=== PATIENT | female | born 1995 | race Asian ===

== ENCOUNTER 2017-11-20 23:36 | Emergency (ER) | payer OTHER ==
[~2017-11-20] VITALS: Ht 152.4 cm; Wt 56.7 kg
[2017-11-20 23:38] VITALS: Ht 152.4 cm; Wt 56.7 kg
[2017-11-21 01:00] LABS: CARBON DIOXIDE 23.3 mmol/L (21-32); CHLORIDE SERUM 103 mmol/L (98-107); CREATININE SERUM 0.8 mg/dL (0.6-1.0); GFR1 > 60 mL/min; GLUCOSE SERUM 111 mg/dL (74-106); POTASSIUM SERUM 3.4 mmol/L (3.5-5.1); SODIUM SERUM 139 mmol/L (136-145)
[2017-11-21 01:16] VITALS: BP 118/65
== END 2017-11-21 01:16 | disposition home or self-care (01) ==
LOC: ED 23:36
PROVIDERS: Emergency Medicine
DX: G40.909 Epilepsy, unspecified, not intractable, without status epilepticus (principal); G80.9 Cerebral palsy, unspecified
CPT/HCPCS: J2060